=== PATIENT | male | born 1970 | race Caucasian/White ===

== ENCOUNTER 2018-01-10 00:32 | Emergency (ER) | payer BC, OTHER, SELFPAY ==
--- NOTE | 2018-01-10 08:18 | RAD ---
2 VIEWS CHEST: Date: 01/10/18 HISTORY: Asthma flareup. Patient on antibiotics from primary care physician, slowly getting worse. FINDINGS: PA and lateral views of chest obtained. ACDF plates and screws are seen in the lower cervical region. The lungs demonstrate loss of the margin between the right cardiac silhouette and the right middle lo be seen on the PA view. The lateral view does not demonstrate any obvious evidence of middle lobe abn ormalities. Differential diagnosis includes possible right middle lobe pneumonia versus prominent per icardial fat pad. Some mild pulmonary vascular congestion seen. No evidence of effusions seen. No kev dence of pneumothorax seen. IMPRESSION: Possible right middle lobe opacity, not definitive. It may be worthwhile to consider CT chest to bett er evaluate the right heart border. Unfortunately, I do not have access to previous old radiographs o f the chest to compare with today's exam and to help differentiate between pericardial fat pad versus subtle middle lobe pneumonia. CODE T. POS: [facility]
== END 2018-01-10 03:07 | disposition home or self-care (01) ==
LOC: ERS 00:32
DX: J45.901 Unspecified asthma with (acute) exacerbation (principal); F41.9 Anxiety disorder, unspecified; F17.210 Nicotine dependence, cigarettes, uncomplicated; G35 Multiple sclerosis; Z79.899 Other long term (current) drug therapy
CPT/HCPCS: 71046; 94640; J7620

== ENCOUNTER 2019-02-08 12:39 | Emergency (ER) | payer OTHER ==
[2019-02-08] MEDS ORDERED: Ketorolac Tromethamine 60 MG/2 ML VIAL ONE (15:09)
== END 2019-02-08 15:45 | disposition home or self-care (01) ==
LOC: ERS 12:39
DX: M54.42 Lumbago with sciatica, left side (principal); J45.909 Unspecified asthma, uncomplicated; F41.9 Anxiety disorder, unspecified; F17.200 Nicotine dependence, unspecified, uncomplicated; Z79.899 Other long term (current) drug therapy; Z79.51 Long term (current) use of inhaled steroids
CPT/HCPCS: 96372; J1885

== ENCOUNTER 2019-02-22 11:34 | Outpatient (CLI) | payer BC ==
--- NOTE | 2019-02-22 13:20 | MRI ---
MRI LUMBAR SPINE WITH AND WITHOUT CONTRAST: DATE: 02/22/2019 HISTORY: 48-year-old male with low back pain and right lumbar radiculopathy. COMPARISON: 02/24/2017 TECHNIQUE: Multiple sequences obtained in axial and sagittal planes, pre and post IV injection of gadolinium-bas ed contrast agent. FINDINGS: There are 5 lumbar-type vertebrae. Vertebral body heights are maintained. Alignment is normal. Disc s paces are maintained except for minimal disc space narrowing at L4-5 and L5-S1. There is no scoliosis. Conus medullaris terminates at L1. Cauda equina is arranged, and a symmetrical, normal dis tribution throughout the thecal sac. T12-L1:Normal. L1-2:Normal. L2-3:Normal. L3-4:Essentially normal. L4-5:Mild diffuse disc bulge. Left focal far lateral disc herniation with annular fissure. The annula r fissure showed enhancement previously, but no longer does. The disc herniation abuts and peripherally displaces the left exiting L4 nerve root. Mild central spinal canal stenosis. Lateral re cess stenosis bilaterally. Bilateral facet DJD including facet joint effusions. Again demonstrated is the bone marrow edema of the right L5 pedicle, consistent with asymmetrical biomechanical stress. Mild to moderate bilateral neural foraminal stenosis. L5-S1:Right paracentral shallow fusion minimally posteriorly displaces the right S1 nerve root at the right lateral recess. There is annular fissure associated with this disc protrusion, which enhances. No significant neural foraminal stenosis. No central stenosis. No significant interval eason ge. IMPRESSION: 1) degree of lumbar spondylosis is mild. 2) left far lateral focal disc herniation at L4-5, impinging on the exiting left L4 nerve root in the left neural foramen. 3) tiny, right paracentral focal disc protrusion at L5-S1, minimally displacing the right S1 nerve ro ot chronically. 4) bilateral moderate facet osteoarthrosis at L4-5. 5) no major interval change since 02/23/2017.
== END 2019-02-22 11:35 | disposition home or self-care (01) ==
LOC: MRI 11:34 → EDSTATUS 12:00
PROVIDERS: ATTEND Surgery
DX: M54.5 Low back pain (principal); M79.604 Pain in right leg; M47.816 Spondylosis without myelopathy or radiculopathy, lumbar region; M51.26 Other intervertebral disc displacement, lumbar region; M51.27 Other intervertebral disc displacement, lumbosacral region
CPT/HCPCS: 72158

== ENCOUNTER 2019-02-22 16:01 | Inpatient (IN) | payer BC ==
[2019-02-22] MEDS ORDERED: Acetaminophen 500 MG TAB PO PRN (16:28)
[2019-02-22] MEDS ORDERED: traMADol HCl 50 MG TAB PO PRN (16:29)
[2019-02-22] MEDS ORDERED: Ondansetron PF 4 MG/2 ML Vial SLOW IVP PRN (16:29)
[2019-02-22 16:46] VITALS: BMI 27.8
[2019-02-22] MEDS: Morphine 4 MG/ML VIAL SLOW IVP PRN (16:59)
[2019-02-22 17:00] LABS: #Basophils 0.1 thou/uL (0.0-0.2); #Lymphocytes 2.2 thou/uL (1.20-3.40); #Monocytes 1.1 thou/uL (0.11-0.59); %Basophils 0.8 % (0.0-1.0); %Eosinophils 0.4 % (0.0-10.0); %Lymphocytes 29.5 % (21.0-51.0); %Monocytes 14.8 % (0.0-10.0); %Neutrophils 54.4 % (42.0-75.0); Hemoglobin 15.4 g/dL (14.0-18.0); Mean Corpuscular HGB CONC 33.9 g/dL (32.0-36.0); Mean Corpuscular Hemoglobin 30.4 pg (27.0-31.0); Mean Corpuscular Volume 89.7 fL (78.0-98.0); Mean Platelet Volume 7.9 fL (7.4-10.4); Platelet Count 235 thou/uL (130-400); RBC Distribution Width 11.7 % (11.5-14.5); Red Blood Cell (RBC) Count 5.05 mill/uL (4.70-6.10); White Blood Cell (WBC) Count 7.4 thou/uL (4.8-10.8)
[2019-02-22 17:07] LABS: PTT 27.4 SEC (22.9-36.1); Prothrombin Time 13.6 SEC (12.0-14.7)
[2019-02-22 17:22] LABS: Anion Gap 16 mmol/L (10-20); BUN (Urea Nitrogen) 12 mg/dL (8.9-20.6); Calc. Creatinine Clearance 112 mL/min (70-130); Calcium 9.5 mg/dL (7.8-10.44); Carbon Dioxide 23 mmol/L (22-29); Chloride 106 mmol/L (98-107); Estimated GFR-MDRD 78; Glucose 95 mg/dL (70-105); Sodium 141 mmol/L (136-145)
[2019-02-22] MEDS ORDERED: COPAXONE SC SCH (17:30)
[2019-02-22] MEDS: tiZANidine HCl 4 MG TAB PO PRN (18:36)
[2019-02-22] MEDS: HYDROcodone/Acetaminophen 10/325 mg Tablet PO PRN ×2 (18:36→23:59)
[2019-02-22] MEDS: Atorvastatin Calcium 40 MG TAB PO SCH (21:06)
[2019-02-22] MEDS: Zolpidem Tartrate 5 MG TAB PO SCH (21:07)
[2019-02-23] MEDS: Morphine 4 MG/ML VIAL SLOW IVP PRN ×3 (01:09→11:19)
[2019-02-23] MEDS: ALPRAZolam 1 MG TAB PO PRN ×2 (06:39→22:48)
[2019-02-23] MEDS ORDERED: Sodium Chloride 0.9% 10 ML ONE (14:13)
[2019-02-23] MEDS ORDERED: Thrombin 5000 UNITS/5 ML VIAL ONE (14:13)
[2019-02-23] MEDS ORDERED: Levofloxacin 500 mg/D5W 100 ml Premix Bag ONE (14:21)
[2019-02-23] MEDS ORDERED: Clindamycin/D5W 900 mg/50 ml Premix Bag ONE (14:22)
[2019-02-23] MEDS ORDERED: Fentanyl 100 MCG/2 ML VIAL ONE ×2 (14:36→17:38)
[2019-02-23] MEDS ORDERED: Meperidine HCl/PF 25 MG/ML VIAL SLOW IVP PRN (18:05)
[2019-02-23] MEDS ORDERED: Morphine Sulfate 2 MG/ML SYRINGE SLOW IVP PRN (18:05)
[2019-02-23] MEDS ORDERED: Ondansetron HCl/PF 4 MG/2 ML Vial IVP PRN (18:05)
[2019-02-23] MEDS ORDERED: PACU-Morphine 4MG/ML VIAL SLOW IVP PRN (18:05)
[2019-02-23] MEDS ORDERED: HYDROmorphone 2 MG/ML VIAL SLOW IVP PRN (18:05)
[2019-02-23] MEDS ORDERED: Promethazine HCl 25 MG/ML VIAL SLOW IVP PRN (18:05)
[2019-02-23] MEDS ORDERED: Promethazine HCl 25 MG/ML VIAL IM PRN (18:05)
[2019-02-23] MEDS: Clindamycin/D5W 600 MG in Premix Bag 1 BAG IVPB SCH (20:31)
[2019-02-23] MEDS: Atorvastatin Calcium 40 MG TAB PO SCH (20:31)
[2019-02-23] MEDS: Zolpidem Tartrate 5 MG TAB PO SCH (20:32)
[2019-02-23] MEDS ORDERED: Cepastat Lozenges 1 LOZ PO PRN (21:43)
[2019-02-23] MEDS: HYDROcodone/Acetaminophen 10/325 mg Tablet PO PRN (22:48)
[2019-02-24] MEDS: Morphine 4 MG/ML VIAL SLOW IVP PRN ×3 (01:13→14:07)
[2019-02-24] MEDS: tiZANidine HCl 4 MG TAB PO PRN ×2 (01:21→14:07)
[2019-02-24] MEDS: Zolpidem Tartrate 5 MG TAB PO SCH (01:23)
[2019-02-24] MEDS: Clindamycin/D5W 600 MG in Premix Bag 1 BAG IVPB SCH (04:48)
[2019-02-24] MEDS: HYDROcodone/Acetaminophen 10/325 mg Tablet PO PRN (09:12)
--- NOTE | 2019-02-24 09:44 | PRG ---
DATE OF SERVICE: 02/24/2019 Mr. Vasquez is postoperative day #1 from L4-L5 laminectomy and right L5-S1 hemilaminotomy with left L4-L5 trans-facet approach for diskectomy. He has had improvement in his leg pain and is mobilizing. Muscle spasm has been the biggest issue, but we are working towards that. His strength is good in his lower extremities and intact, and he may be dismissed today. Job ID: [id number]
--- NOTE | 2019-02-24 12:05 | OP ---
DATE OF PROCEDURE: 02/23/2019 LOCATION: OR 11. WOUND CLASSIFICATION: Type 1 wound. DURABILITY ENGINEER: Ramses Alves PA-C PREPROCEDURE DIAGNOSES: Low back and leg pain with lumbar stenosis and left L4-L5 far-lateral disk extrusion with right S1 radiculopathy. POSTPROCEDURE DIAGNOSES: Low back and leg pain with lumbar stenosis and left L4-L5 far-lateral disk extrusion with right S1 radiculopathy. PROCEDURE PERFORMED: 1. L4-L5 laminectomy, partial facetectomy, and foraminotomy. 2. Left L4-L5 trans-facet approach for left L4 far-lateral disk extrusion and decompression. 3. Right L5-S1 hemilaminotomy, foraminotomy, and diskectomy. 4. Use of operative microscope for microdissection. DESCRIPTION OF PROCEDURE: After informed consent was obtained from the patient, the patient was brought to the OR. Proper patient, pause, and identification were carried out. The wound was then opened and following sterile cleansing, preparation, and draping, the linear kyle being made. We then exposed the L4-L5 and right-sided L5-S1 segments. Localization film confirmed area of interest. We then performed L4-L5 laminectomy, partial facetectomy, and foraminotomy and the right L5-S1 hemilaminotomy and foraminotomy. I did not feel it necessary to do a diskectomy as we had excellent decompression simply by moving the mesial portion of the right L5-S1 facet complex. The operative microscope was used for microdissection. I then proceeded in a left L4-L5 trans-facet approach for decompression of the exiting left L4 nerve root with excellent decompression, with multiple disk fragments removed. Copious irrigation occurred throughout as did maximizing hemostasis. We then copiously irrigated, maximized hemostasis, and closed the wound in anatomic layers. There was no spinal fluid leak. Job ID: [id number]
[2019-02-24] MEDS: ALPRAZolam 1 MG TAB PO PRN (14:07)
[2019-02-24 15:38] VITALS: BP 124/73; TEMP 98.7
== END 2019-02-24 18:37 | disposition home or self-care (01) | DRG 517 ==
LOC: SURG B 16:01
PROVIDERS: ADMIT Surgery; ATTEND Surgery
PROC: 01NB0ZZ Release Lumbar Nerve, Open Approach (ICD-10-PCS; principal; 2019-02-23)
DX: M48.061 Spinal stenosis, lumbar region without neurogenic claudication (principal); M51.16 Intervertebral disc disorders with radiculopathy, lumbar region; Z88.0 Allergy status to penicillin; Z98.890 Other specified postprocedural states
CPT/HCPCS: 36415; 72158; 76000; 80048; 85025; 85610; 85730; 93005; 93010; J1956; J2270; J2405; J3010; J3370; J3490

== ENCOUNTER 2019-05-15 09:58 | Outpatient (CLI) | payer OTHER ==
--- NOTE | 2019-05-15 11:45 | RAD ---
THORACIC SPINE SERIES THREE VIEWS: HISTORY: Disability examination. FINDINGS: Vertebral bodies are normal in height. There are moderate degenerative osteophytic changes along the thoracic spine. These changes are most pronounced in the mid to lower thoracic spine region. Posto perative changes of the cervical spine are seen. The pedicles are intact. IMPRESSION: Moderately severe osteoarthritic changes of the spine. POS: OFF
--- NOTE | 2019-05-15 11:47 | RAD ---
LUMBAR SPINE SERIES TWO VIEWS: HISTORY: Disability examination. FINDINGS: Vertebral bodies maintain normal height. Degenerative osteophytes are seen along the course of the s pine with some mild to moderate dyspnea noted at L4-L5 and at L5-S1 with associated laminectomy pillai es. IMPRESSION: Degenerative changes of the spine and postoperative changes. POS: OFF
== END 2019-05-15 09:59 | disposition home or self-care (01) ==
LOC: BICRAD 09:58
PROVIDERS: ATTEND Internal Medicine
DX: Z02.71 Encounter for disability determination (principal); M47.816 Spondylosis without myelopathy or radiculopathy, lumbar region; M47.814 Spondylosis without myelopathy or radiculopathy, thoracic region; Z98.890 Other specified postprocedural states
CPT/HCPCS: 72070; 72100

== ENCOUNTER 2019-07-05 08:00 | Outpatient (CLI) | payer BC ==
[2019-07-05] MEDS ORDERED: Gadobenate Dimeglumine 529 MG/1 ML (20ML VIAL) ONE (09:54)
--- NOTE | 2019-07-05 10:57 | MRI ---
MRI CERVICAL SPINE WITH AND WITHOUT CONTRAST: HISTORY: History of relapsing, remitting multiple sclerosis. COMPARISON: 02/23/2017 FINDINGS: The craniocervical junction is unremarkable. No significant cord signal abnormality. No pathologic in tramedullary enhancement is identified. There is susceptibility related to ACDF at C6-7. C1-2: There is no significant central canal stenosis at C1-2 with degenerative hypertrophy seen. C2-3: No significant central canal or foraminal stenosis of C2-3. C3-4: Reveals mild left foraminal stenosis due to facet hypertrophy and disc osteophyte. C4-5: No significant stenosis at C4-5. C5-6: Redemonstration of disc osteophyte at C5-6 with mild central canal stenosis. C6-7: Broad based disk osteophyte at the postoperative C6-7 level with mild narrowing of the central canal. Bilateral uncinate process hypertrophy results in mild bilateral neural foraminal stenosis. C7-T1: No significant stenosis of the C7-T1 level. IMPRESSION: 1. No pathologic intramedullary enhancement to indicate active demyelination of the cervical spinal c ord. 2. Multilevel degenerative change involving the postoperative cervical spine. Transcribed Date/Time: 07/05/2019 11:01 AM
--- NOTE | 2019-07-05 11:15 | MRI ---
MRI Brain W WO Con: 07/05/2019 12:00 AM CLINICAL HISTORY: Relapsing, remitting MS. COMPARISON: 02/24/2017 FINDINGS: Extra axial spaces: Normal in size and morphology for the patient's age. Acute infarction: None. Ventricular system: Normal in size and morphology for the patient's age. Basal cisterns: Normal. Cerebral parenchyma: There are stable multifocal white matter signal abnormalities of the bilateral c erebral hemispheres. Midline shift: None. Cerebellum: Normal. Brainstem: Normal. Paranasal sinuses:Scattered mucosal thickening. Intraaxial Enhancement: None IMPRESSION:Redemonstration of multifocal white matter signal abnormalities, corresponding to history of multiple sclerosis. No MR evidence of active demyelination.
--- NOTE | 2019-07-05 11:39 | MRI ---
MRI THORACIC SPINE WITH AND WIHTOUT CONTRAST: DATE: 07/05/2019. HISTORY: A 48-year-old male with ICD-10: G35, relapsing-remitting multiple sclerosis. TECHNIQUE: Multisequence MRI of thoracic spine obtained in sagittal and axial planes pre- and post- IV injection of 20 mL MultiHance. COMPARISON: No prior thoracic spine MRIs are available for comparison. FINDINGS: ACDF hardware at C6 and C7 in the lower cervical spine. Thoracic vertebral body heights are maintain ed. No major bone marrow signal abnormality. No high-grade central spinal canal stenosis or high-gr sirisha neural foraminal stenosis at any level in the thoracic spine. No cord compression. At T6-7, there is a shallow central and right paracentral focal disk protrusion which abuts the ventr al surface of the spinal cord without significantly displacing it. There is no syringohydromyelia. There is no intramedullary abnormal enhancement. There are several focal patchy foci of intramedullary signal abnormality in the thoracic spine. Most notably, these in clude the following levels: Diffuse involvement of central and bilateral paracentral stroud matter involving the majority of the cr oss-sectional area of the spinal cord at T6. This extends from the upper T6 level down to the mid-lo wer T6 level. A short distance inferior to that, there is a central smaller lesion at T7. Small bilateral paracentral stroud matter involvement at T9. IMPRESSION: 1. Several intramedullary demyelinating plaques representing multiple sclerosis involvement of the t horacic spinal cord. 2. No enhancement (no evidence of active demyelination). POS: [facility]
== END 2019-07-05 08:01 | disposition home or self-care (01) ==
LOC: BICMRI 08:00
PROVIDERS: ATTEND Nurse Practitioner Acute Care
DX: G35 Multiple sclerosis (principal); M47.812 Spondylosis without myelopathy or radiculopathy, cervical region; Z98.890 Other specified postprocedural states
CPT/HCPCS: 70553; 72156; 72157; A9577